=== PATIENT | female | born 1970 | race Asian ===

== ENCOUNTER 2020-08-10 21:22 | Emergency (ER) | payer BC ==
[~2020-08-10] VITALS: Ht 157.5 cm; Wt 55.3 kg
--- NOTE | 2020-08-10 21:25 | NUR ---
RESENTED TO THE ER FOR C/O PALPITATION AND LIGHTHEADEDNESS X 2 DAYS. DENIED CP OR SOB. PER PT HAD RECENT BLOOD TEST AT [facility] W/ NO SIGNIFICANT RESULT. PT AMBULATORY TO BED 8 ER. WAS PLACED ON A MONITOR . VSS. WILL CONT TO MONITOR ,
--- NOTE | 2020-08-10 21:31 | NUR ---
tech at bedside for EKG
--- NOTE | 2020-08-10 21:42 | NUR ---
blood collected and sent to the lab.
[2020-08-10 21:46] LABS: BASOPHILS # (AUTO) 0.1 /CMM (0.0-0.2); BASOPHILS % (AUTO) 0.7 % (0.0-2.0); EOSINOPHILS % (AUTO) 5.2 % (0.0-6.0); HEMATOCRIT 43 % (33-45); HEMOGLOBIN 14.6 g/dL (11.5-14.8); LYMPHOCYTES # (AUTO) 2.5 /CMM (0.8-4.8); LYMPHOCYTES % (AUTO) 29.1 % (20.0-44.0); MEAN CORPUSCULAR HGB CONC 34 g/dl (31.0-36.0); MEAN CORPUSCULAR VOLUME 95 fL (82-100); MONOCYTES # (AUTO) 0.6 /CMM (0.1-1.30); NEUTROPHILS # (AUTO) 4.9 /CMM (1.8-8.9); PLATELET COUNT (AUTO) 285 /CMM (150-450); RED BLOOD CELL COUNT(AUTO) 4.53 MIL/uL (4.0-5.2); WHITE BLOOD COUNT (AUTO) 8.4 K/uL (4.3-11.0)
--- NOTE | 2020-08-10 21:51 | NUR ---
XRAY AT BEDSIDE
[2020-08-10 22:05] LABS: ALANINE AMINOTRANSFERASE 27 U/L (12-78); ALKALINE PHOSPHATASE 76 U/L (46-116); ASPARTATE AMINOTRANSFERASE 17 U/L (15-37); BILIRUBIN,DIRECT 0.1 mg/dL (0.0-0.2); BILIRUBIN,TOTAL 0.2 mg/dL (0.2-1.0); CALCIUM, SERUM 8.6 mg/dL (8.5-10.1); CARBON DIOXIDE 28 mmol/L (21-32); CHLORIDE 103 mmol/L (98-107); CREATININE 0.7 mg/dL (0.6-1.3); GLUCOSE 124 mg/dL (74-106); POTASSIUM 3.7 mmol/L (3.5-5.1); SODIUM SERUM 139 mmol/L (136-145); TOTAL PROTEIN, SERUM 7.7 g/dL (6.4-8.2); UREA NITROGEN, BLOOD 10 mg/dL (7-18)
--- NOTE | 2020-08-10 23:04 | NUR ---
PT IS MEDICALLY STABLE FOR D/C. IV removed. Catheter intact and site benign. Pressure and 4x4 applied to site. No bleeding noted.Patient discharged to home in stable condition. Written and verbal after care instructions given. Patient verbalizes understanding of instruction.
[2020-08-10 23:07] VITALS: BP 127/79
== END 2020-08-10 23:07 | disposition home or self-care (01) ==
LOC: ER 21:26
DX: R00.2 Palpitations (principal); R42 Dizziness and giddiness; R00.0 Tachycardia, unspecified; Z90.89 Acquired absence of other organs
CPT/HCPCS: 36415; 71045-TC; 80048-TC; 80076-TC; 84484-TC; 85025-TC